=== PATIENT | male | born 1965 | race Caucasian/White ===

== ENCOUNTER 2020-07-07 16:07 | Outpatient (REF) | payer BC, SELFPAY ==
[2020-07-11 23:54] LABS: Patient Race White; SARS-CoV-2 RNA Undetected (Undetected); SARS-CoV-2 Specimen Source Nasopharynx
== END 2020-07-07 16:27 ==
LOC: NCHCN 16:07
PROVIDERS: Visit Provider Family Medicine
DX: Z20.828 Contact with and (suspected) exposure to other viral communicable diseases (principal)
CPT/HCPCS: U0003

== ENCOUNTER 2020-07-17 12:30 | Outpatient (REF) | payer BC, SELFPAY ==
[2020-07-17 22:32] LABS: Calculated LDL 153 mg/dL (<100); Cholesterol 227 mg/dL (<200); HDL Cholesterol 49 mg/dL (40-60); Triglyceride 127 mg/dL (<150)
== END 2020-07-17 12:50 ==
LOC: NCHCN 12:30
PROVIDERS: Visit Provider Internal Medicine
DX: Z13.220 Encounter for screening for lipoid disorders (principal)
CPT/HCPCS: 80061

== ENCOUNTER 2023-06-20 09:29 | Outpatient (REF) | payer BC, SELFPAY ==
[2023-06-20 16:45] LABS: ALT 17 U/L (16-63); AST 20 U/L (15-37); Albumin 3.8 g/dL (3.4-5.0); Alkaline Phosphatase 59 U/L (46-116); Anion Gap 12.1 mmol/L (3-11); BUN 9 mg/dL (7-18); Bilirubin, Total 0.9 mg/dL (0.2-1.0); CO2 23.9 mmol/L (21.0-32.0); Calcium 8.9 mg/dL (8.5-10.1); Calculated LDL 153 mg/dL (<100); Chloride 106 mmol/L (98-107); Cholesterol 263 mg/dL (<200); Estimated GFR 88.33 (mL/min/1.73m2); Glucose 102 mg/dL (74-106); HDL Cholesterol 41 mg/dL (40-60); Potassium 4.1 mmol/L (3.5-5.1); Sodium 142 mmol/L (136-145); Total Protein 8.1 g/dL (6.4-8.2); Triglyceride 349 mg/dL (<150)
== END 2023-06-20 09:30 | disposition home or self-care (01) ==
LOC: NCHCN 09:29
PROVIDERS: Visit Provider Internal Medicine
DX: Z00.00 Encounter for general adult medical examination without abnormal findings (principal); E78.5 Hyperlipidemia, unspecified
CPT/HCPCS: 80053; 80061

== ENCOUNTER 2024-06-22 14:43 | Outpatient (REF) | payer BC, SELFPAY ==
[2024-06-22 18:03] LABS: Anion Gap 10.8 mmol/L (3-11); BUN 12 mg/dL (7-18); CO2 23.2 mmol/L (21.0-32.0); CREATININE 0.9 mg/dL (0.70-1.30); Calcium 9.2 mg/dL (8.5-10.1); Chloride 104 mmol/L (98-107); Cholesterol 288 mg/dL (<200); Estimated GFR 99.62 (mL/min/1.73m2); Glucose 106 mg/dL (74-106); HDL Cholesterol 41 mg/dL (40-60); Potassium 4.5 mmol/L (3.5-5.1); Sodium 138 mmol/L (136-145); Triglyceride 436 mg/dL (<150)
[2024-06-22 18:35] LABS: LDL CHOLESTEROL 134 mg/dL (<100)
[2024-06-22 18:44] LABS: Hemoglobin A1C 5.4 % (<5.7)
== END 2024-06-22 14:44 | disposition home or self-care (01) ==
LOC: NCHCN 14:43
PROVIDERS: PCP Internal Medicine; Visit Provider Internal Medicine
DX: E78.5 Hyperlipidemia, unspecified (principal); R73.09 Other abnormal glucose; Z12.5 Encounter for screening for malignant neoplasm of prostate
CPT/HCPCS: 80048; 80061; 83721; 84153; 83036

== ENCOUNTER 2025-06-24 08:13 | Outpatient (REF) | payer BC, SELFPAY ==
[2025-06-24 15:41] LABS: HCT 44.1 % (40.0-50.0); HGB 14.5 g/dL (13.5-17.5); MCH 30.7 pg (27.0-33.0); MCHC 32.9 % (32.0-36.0); MCV 93 fL (80-95); MPV 9.1 fL (8.0-11.0); Platelet Count 271 10^3/uL (130-400); RBC 4.73 10^6/uL (4.36-5.78); RDW 12.0 % (11.8-14.1); RDW-SD 41.1 fL; WBC 6.87 10^3/uL (4.4-10.8)
[2025-06-24 16:07] LABS: ALT 19 U/L (16-63); AST 28 U/L (15-37); Albumin 3.9 g/dL (3.4-5.0); Alkaline Phosphatase 61 U/L (46-116); Anion Gap 11.8 mmol/L (3-11); BUN 11 mg/dL (7-18); Bilirubin, Total 0.6 mg/dL (0.2-1.0); CO2 24.2 mmol/L (21.0-32.0); Calcium 9.3 mg/dL (8.5-10.1); Chloride 101 mmol/L (98-107); Cholesterol 294 mg/dL (<200); Estimated GFR 99.00 (mL/min/1.73m2); Glucose 110 mg/dL (74-106); HDL Cholesterol 32 mg/dL (>or=40); Potassium 4.1 mmol/L (3.5-5.1); Sodium 137 mmol/L (136-145); Total Protein 7.8 g/dL (6.4-8.2); Triglyceride 668 mg/dL (<150)
[2025-06-24 17:16] LABS: LDL CHOLESTEROL 122 mg/dL (<100)
== END 2025-06-24 08:14 | disposition home or self-care (01) ==
LOC: NCHCN 08:13
PROVIDERS: PCP Internal Medicine; Visit Provider Internal Medicine
DX: E78.5 Hyperlipidemia, unspecified (principal)
CPT/HCPCS: 80053; 80061; 83721; 85027